=== PATIENT | female | born 1965 | race Caucasian/White ===

== ENCOUNTER → 2018-10-30 | Outpatient (CLI) | payer OTHER ==
--- NOTE | 2018-10-31 07:01 | US ---
EXAMINATION TYPE: US pelvis complete transvag DATE OF EXAM: 10/30/2018 COMPARISON: NONE CLINICAL HISTORY: M54.6. Postmenopausal bleeding. TECHNIQUE: Transvaginal (TV) and Transabdominal (TA) . Transabdominal sonographic images of the pel vis were acquired. Transvaginal sonographic images were medically necessary to better assess the fol lowing anatomy: Ovaries EXAM MEASUREMENTS: Uterus: 9.8 x 4.6 x 6.4 cm Endometrial Stripe: 0.7 cm 1. Uterus: Anteverted wnl 2. Endometrium: wnl 3. Right Ovary: Obscured by overlying bowel gas 4. Left Ovary: Obscured by overlying bowel gas 5. Bilateral Adnexa: wnl 6. Posterior cul-de-sac: wnl Markedly heterogeneous uterus with poorly defined endometrium measuring up to 7 mm on transabdominal and transvaginal investigation. No free fluid in pelvic cul-de-sac. Neither ovary is clearly seen. No adnexal masses are noted. IMPRESSION: Poorly visualized endometrium may be mildly thickened for postmenopausal female. Consider sampling to further investigate.
== END ==
LOC: RADUSMAIN 17:43
PROVIDERS: ATTEND Obstetrics & Gynecology
DX: N95.0 Postmenopausal bleeding (principal)
CPT/HCPCS: 76830; 76856

== ENCOUNTER → 2019-08-20 | Outpatient (CLI) | payer OTHER ==
--- NOTE | 2019-08-22 12:13 | MM ---
Reason for exam: screening (asymptomatic). Last mammogram was performed 13 years and 2 months ago. History: Patient is postmenopausal. Benign US right core biopsy of the right breast, June 28, 2006. Benign US right guided mammotome of the right breast, December 02, 2005. Took hormonal contraceptives for 15 years. Physical Findings: A clinical breast exam by your physician is recommended on an annual basis and results should be correlated with mammographic findings. MG 3D Screening Mammo W/Cad Bilateral CC and MLO view(s) were taken. No prior studies available for comparison. There are scattered fibroglandular densities. Finding: There are indeterminate typically benign round, diffuse/scattered calcifications in the lower quadrant of the right breast, 7-8cm from the nipple with clips consistent with post biopsy change. ASSESSMENT: Incomplete: need additional imaging evaluation, BI-RAD 0 RECOMMENDATION: Special view mammogram of the right breast. [facility] will attempt to contact patient to return for supplemental views.
== END | disposition home or self-care (01) ==
LOC: RADMAMWWP 13:14
PROVIDERS: ATTEND Family Medicine
DX: Z12.31 Encounter for screening mammogram for malignant neoplasm of breast (principal)
CPT/HCPCS: 77063; 77067

== ENCOUNTER → 2019-09-05 | Outpatient (CLI) | payer OTHER ==
--- NOTE | 2019-09-05 10:12 | MM ---
Reason for exam: additional evaluation requested from abnormal screening. Last mammogram was performed 1 month ago. History: Patient is postmenopausal. Benign US right core biopsy of the right breast, June 28, 2006. Benign US right guided mammotome of the right breast, December 02, 2005. Took hormonal contraceptives for 15 years. Physical Findings: Nurse did not find any significant physical abnormalities on exam. MG 3D Work Up W/Cad RT CC with magnification, LM with magnification, and LM view(s) were taken of the right breast. Prior study comparison: August 20, 2019, bilateral MG 3d screening mammo w/cad. June 22, 2006, right diagnostic mammogram w/CAD. Indeterminate calcifications right breast, biopsy recommended. These results were verbally communicated with the patient and result sheet given to the patient on 09/05/19. ASSESSMENT: Suspicious, BI-RAD 4 RECOMMENDATION: Stereotactic core biopsy of the right breast. Called Dr. Nath's office with mammographic findings and has scheduled an appointment for the patient for 09/12/19 at 1:[address] Ceballos. PRELIMINARY REPORT CALLED AND FAXED TO DR. CEBALLOS ON 09/04/19.
== END ==
LOC: RADMAMWWP 08:44
PROVIDERS: ATTEND Family Medicine
DX: R92.8 Other abnormal and inconclusive findings on diagnostic imaging of breast (principal)
CPT/HCPCS: 77061; 77065

== ENCOUNTER 2023-02-09 16:22 | Emergency (ER) | payer OTHER ==
--- NOTE | 2023-02-09 17:43 | ED ---
Animal Bite HPI - General Chief Complaint: Animal Bite Stated Complaint: Dog bite Lt Leg Time Seen by Provider: 02/09/23 17:22 Source: patient Mode of arrival: ambulatory Limitations: no limitations - History of Present Illness Initial Comments: Patient is a 57-year-old female presenting with chief complaint of dog bite. Patient states that she was walking her dog this afternoon when in [place] bulldog from another yard in the neighborhood came up to her. She picked up her dog, the other dog was trying to bite her dog, and the process the dog bit her left leg. Patient does not know when her last tetanus shot was. Bleeding is well-controlled at this time. No numbness or tingling. Patient has full range of motion and sensation. - Related Data Previous Rx's Medication Instructions Recorded Amoxic-Pot Clav 875-125Mg 1 tab PO BID 10 Days #20 tab 02/09/23 [Augmentin 875-125] Allergies Allergy/AdvReac Type Severity Reaction Status Date / Time No Known Allergies Allergy Verified 02/09/23 17:17 Review of Systems ROS Statement: Those systems with pertinent positive or pertinent negative responses have been documented in the HPI. ROS Other: All systems not noted in ROS Statement are negative. Past Medical History Past Medical History: Hypertension History of Any Multi-Drug Resistant Organisms: None Reported Past Surgical History: Section, Cholecystectomy Past Psychological History: No Psychological Hx Reported Smoking Status: Never smoker Past Alcohol Use History: Occasional Past Drug Use History: None Reported General Exam Limitations: no limitations General appearance: alert, in no apparent distress Head exam: Present: atraumatic, normocephalic, normal inspection Eye exam: Present: normal appearance Neck exam: Present: normal inspection, full ROM Neurological exam: Present: alert, oriented X3, CN II-XII intact Psychiatric exam: Present: normal affect, normal mood Skin exam: Present: other (Puncture wound due to dog bite) Course Vital Signs 02/09/23 02/09/23 17:14 19:38 Temperature 98.7 F 98.4 F Pulse Rate 89 86 Respiratory 20 16 Rate Blood Pressure 153/85 126/76 O2 Sat by Pulse 99 99 Oximetry Medical Decision Making - Medical Decision Making Was pt. sent in by a medical professional or institution (, PA, PERSONNEL MANAGER, urgent care, hospital, or group home...) When possible be specific @ -No Did you speak to anyone other than the patient for history (EMS, parent, family, police, friend...)? What history was obtained from this source @ -No Did you review nursing and triage notes (agree or disagree)? Why? @ -I reviewed and agree with nursing and triage notes Were old charts reviewed (outside hosp., previous admission, EMS record, old EKG, old radiological studies, urgent care reports/EKG's, group home records)? Report findings @ -No old charts were reviewed Differential Diagnosis (chest pain, altered mental status, abdominal pain women, abdominal pain men, vaginal bleeding, weakness, fever, dyspnea, syncope, headache, dizziness, GI bleed, back pain, seizure, CVA, palpatations, mental health, musculoskeletal)? @ -not applicable EKG interpreted by me (3pts min.). @ -As above X-rays interpreted by me (1pt min.). @ -XRay shows no evidence of foreign body, there is some soft tissue swelling and air noted due to the dog bite CT interpreted by me (1pt min.). @ -None done U/S interpreted by me (1pt. min.). @ -None done What testing was considered but not performed or refused? (CT, X-rays, U/S, labs)? Why? @ -None What meds were considered but not given or refused? Why? @ -None Did you discuss the management of the patient with other professionals (professionals i.e. , PA, PERSONNEL MANAGER, lab, RT, psych nurse, social sciences department chair, manufacturing analyst, teacher, learning and development officer, rn case mgr)? Give summary @ -No Was smoking cessation discussed for >3mins.? @ -No Was critical care preformed (if so, how long)? @ -No Were there social determinants of health that impacted care today? How? (Homelessness, low income, unemployed, alcoholism, drug addiction, transportation, low edu. Level, literacy, decrease access to med. care, senior living, rehab)? @ -No Was there de-escalation of care discussed even if they declined (Discuss DNR or withdrawal of care, Hospice)? DNR status @ -No What co-morbidities impacted this encounter? (DM, HTN, Smoking, COPD, CAD, Cancer, CVA, ARF, Chemo, Hep., AIDS, mental health diagnosis, sleep apnea, morbid obesity)? @ -None Was patient admitted / discharged? Hospital course, mention meds given and route, prescriptions, significant lab abnormalities, going to OR and other pertinent info. @ -Patient is a 57-year-old female presenting with chief complaint of dog bite to the left leg. Patient does not remember when her last tetanus shot was, tetanus is updated here in the ER. X-rays obtained which shows no foreign body. Wound is irrigated and dressed with gauze. Patient is started on Augmentin. Follow-up with PCP. Report back to ER with any new or worsening symptoms. Discussed return parameters and answered all questions. Patient conveyed verbal understanding and agreed to the plan. I discussed this case in detail with my attending Dr. Weaver Undiagnosed new problem with uncertain prognosis? @ -No Drug Therapy requiring intensive monitoring for toxicity (Heparin, Nitro, Insulin, Cardizem)? @ -No Were any procedures done? @ -No Diagnosis/symptom? @ -Dog bite Acute, or Chronic, or Acute on Chronic? @ -Acute Uncomplicated (without systemic symptoms) or Complicated (systemic symptoms)? @ -Uncomplicated Side effects of treatment? @ -No Exacerbation, Progression, or Severe Exacerbation? @ -No Poses a threat to life or bodily function? How? (Chest pain, [place], [place], pneumonia, PE, COPD, DKA, ARF, appy, cholecystitis, CVA, Diverticulitis, Homicidal, Suicidal, threat to staff... and all critical care pts) @ -No Disposition Clinical Impression: Dog bite Disposition: HOME SELF-CARE Condition: Good Instructions (If sedation given, give patient instructions): Animal Bite (ED) Additional Instructions: Follow-up with PCP. Report back to ER with any new or worsening symptoms. Take medication as prescribed. Keep the wound clean, dry, and covered. Wash with soap and water. Avoid Neosporin or other occlusive products. Prescriptions: Amoxic-Pot Clav 875-125Mg [Augmentin 875-125] 1 tab PO BID 10 Days #20 tab Is patient prescribed a controlled substance at d/c from ED?: No Referrals: Brenda Nath III, MD [Primary Care Provider] - 1-2 days Time of Disposition: 19:27
[2023-02-09] MEDS ORDERED: DIPH,PERTUS(ACELL)TETVAC-LF 0.5 ML VIAL IM ONE (17:47)
[2023-02-09] MEDS ORDERED: AMOXIC-POT CLAV 875-125MG 1 EACH TAB PO STA (17:48)
--- NOTE | 2023-02-09 18:53 | XR ---
PROCEDURE: XR Femur LT 1 View - 3V DATE AND TIME: 02/09/2023 6:28 PM CLINICAL INDICATION: PHH; dog bite, r/o FB TECHNIQUE: 3 AP views of the left femur were obtained from the hip to the knee. COMPARISON: None FINDINGS: On these AP views there is no evidence of fracture or malalignment. At the mid thigh level laterally is a 6 cm zone of ill-defined soft tissue swelling with minimal foci of low attenuation within, suggesting soft tissue emphysema. There are no radiopaque foreign bodies. IMPRESSION: Lateral thigh soft tissue swelling/soft tissue emphysema as noted.
[2023-02-09 19:39] VITALS: BP 126/76; PULSE 86; RESP 16; TEMP 98.4
== END 2023-02-09 19:39 | disposition home or self-care (01) ==
LOC: EC 16:22
DX: S71.152A Open bite, left thigh, initial encounter (principal); I10 Essential (primary) hypertension; Z23 Encounter for immunization; Z90.49 Acquired absence of other specified parts of digestive tract; W54.0XXA Bitten by dog, initial encounter; Y93.K1 Activity, walking an animal; Y92.89 Other specified places as the place of occurrence of the external cause
CPT/HCPCS: 90471; 90715; 99283